=== PATIENT | female | born 1950 | race Two or more races ===

== ENCOUNTER 2020-06-02 11:33 | Inpatient (IN) | payer OTHER ==
[~2020-06-02] VITALS: Ht 167.6 cm; Wt 68.0 kg
[2020-06-02] MEDS ORDERED: ATENOLOL-CHLOR1 EACH PO (12:00)
[2020-06-02] MEDS ORDERED: GABAPENTIN300 M2 PO (12:00)
[2020-06-02] MEDS ORDERED: CLOPIDOGREL BIS75 MG PO (12:00)
[2020-06-02] MEDS ORDERED: ROSUVASTATIN CA20 MG PO (12:01)
[2020-06-02] MEDS ORDERED: LISINOPRIL40 MG PO (12:01)
[2020-06-02] MEDS ORDERED: JANUMET 50-1,01 EACH PO (12:01)
[2020-06-17] MEDS ORDERED: CLOPIDOGREL BIS75 MG PO (09:35)
[2020-06-17] MEDS ORDERED: NEURONTIN600 MG PO (09:35)
[2020-06-17] MEDS ORDERED: ROSUVASTATIN CA20 MG PO (09:35)
[2020-06-17] MEDS ORDERED: AMLODIPINE BESYL5 MG PO (09:35)
[2020-06-17] MEDS ORDERED: OXYC1TAB9 PO (09:35)
[2020-06-17] MEDS ORDERED: LISINOPRIL40 MG PO (09:35)
[2020-06-17] MEDS ORDERED: ATENOLOL50 MG PO (09:35)
== END 2020-06-17 11:45 | disposition home health service (06) | DRG 241 ==
LOC: ER 11:33 → MEDI 18:51 → SEC-K 18:51 → SURG 19:11 → SEC-K 20:28 → MEDI 06-03 11:21
PROVIDERS: Surgery; ADMIT Internal Medicine; ATTEND Internal Medicine
PROC: 0Y6N0ZB Detachment at Left Foot, Partial 2nd Ray, Open Approach (ICD-10-PCS; 2020-06-07)
PROC: 0Y6N0ZC Detachment at Left Foot, Partial 3rd Ray, Open Approach (ICD-10-PCS; 2020-06-07)
PROC: 0Y6N0ZD Detachment at Left Foot, Partial 4th Ray, Open Approach (ICD-10-PCS; 2020-06-07)
PROC: 0Y6N0Z9 Detachment at Left Foot, Partial 1st Ray, Open Approach (ICD-10-PCS; principal; 2020-06-07 08:30)
DX: E11.52 Type 2 diabetes mellitus with diabetic peripheral angiopathy with gangrene (principal); E11.621 Type 2 diabetes mellitus with foot ulcer; L97.529 Non-pressure chronic ulcer of other part of left foot with unspecified severity; D64.9 Anemia, unspecified; Z20.822 Contact with and (suspected) exposure to COVID-19; E11.65 Type 2 diabetes mellitus with hyperglycemia; I10 Essential (primary) hypertension; Z74.01 Bed confinement status; Z79.84 Long term (current) use of oral hypoglycemic drugs

== ENCOUNTER → 2020-07-16 | Outpatient (CLI) | payer OTHER ==
[~2020-07-16] MED LIST: AMLODIPINE BESYL5 MG PO; ATENOLOL-CHLOR1 EACH PO; ATENOLOL50 MG PO; CLOPIDOGREL BIS75 MG PO; GABAPENTIN300 M2 PO; JANUMET 50-1,01 EACH PO; LISINOPRIL40 MG PO; NEURONTIN600 MG PO; OXYC1TAB9 PO; ROSUVASTATIN CA20 MG PO
== END | disposition home or self-care (01) ==
LOC: PPH VACUNA
PROVIDERS: ATTEND Emergency Medicine Pediatric Emergency Medicine
DX: Z23 Encounter for immunization (principal)

== ENCOUNTER 2021-04-14 08:00 | Outpatient (CLI) | payer OTHER | END 2021-04-14 08:30 | disposition home or self-care (01) | LOC: PPH VACUNA 08:00 | PROVIDERS: ATTEND Emergency Medicine Pediatric Emergency Medicine | DX: Z23 Encounter for immunization (principal) ==

== ENCOUNTER 2023-06-03 16:42 | Emergency (ER) | payer OTHER ==
[~2023-06-03] VITALS: Ht 167.6 cm; Wt 86.2 kg
== END 2023-06-03 18:22 | disposition home or self-care (01) ==
LOC: ER 16:42
DX: M62.838 Other muscle spasm (principal); R53.81 Other malaise; Z91.013 Allergy to seafood
CPT/HCPCS: 96372; 99282; J1885; J2360

== ENCOUNTER 2023-12-08 10:39 | Emergency (ER) | payer OTHER ==
[~2023-12-08] VITALS: Ht 177.8 cm; Wt 81.6 kg
[2023-12-08] MEDS ORDERED: ACETAMINOPHEN 500 MG GEL..CAP PO ONE (11:39)
[2023-12-08 12:33] LABS: HEMATOCRIT 36.1 % (36.0-45.00); MEAN CELL VOLUME 92.4 fL (80.00-100.00); MEAN CORPUSCULAR HEMOGLOBIN 30.7 pg (27.00-32.0); MEAN CORPUSCULAR HGB CONC 33.2 g/dl (32.0-36.0); PLATELET COUNT 299 K/uL (150-450); RED BLOOD COUNT 3.91 M/uL (4.00-6.00)
[2023-12-08 13:08] LABS: ALBUMIN 3.2 gm/dL (3.4-5.0); BILIRUBIN TOTAL 0.35 mg/dL (0.3-1.2); CALCIUM 9.5 mg/dL (8.5-10.1); CREATININE SERUM 1.34 mg/dL (0.55-1.02); GFR 38.88; GLOBULINA 4.8 G/DL (2.4-3.5); POTASSIUM 4.11 mEq/L (3.5-5.1)
== END 2023-12-08 13:52 | disposition home or self-care (01) ==
LOC: ER 10:40
PROVIDERS: General Practice
DX: B01.9 Varicella without complication (principal); R21 Rash and other nonspecific skin eruption; Z20.822 Contact with and (suspected) exposure to COVID-19; E11.9 Type 2 diabetes mellitus without complications; Z91.013 Allergy to seafood